=== PATIENT | female | born 1990 | race Caucasian/White ===

== ENCOUNTER 2018-05-31 18:27 | Emergency (ER) | payer BC ==
[~2018-05-31] VITALS: Ht 167.6 cm; Wt 101.6 kg
[2018-05-31] MEDS ORDERED: PRENATAL TABLE1 EACH (18:43)
== END 2018-05-31 21:41 | disposition home or self-care (01) ==
LOC: ER 18:27
DX: O20.8 Other hemorrhage in early pregnancy (principal); Z34.01 Encounter for supervision of normal first pregnancy, first trimester